=== PATIENT | male | born 1940 | race Caucasian/White ===

== ENCOUNTER 2018-02-09 14:00 | Inpatient (IN) | payer MEDICARE ==
[~2018-02-09] VITALS: Ht 184.2 cm; Wt 127.0 kg
[~2018-02-09 14:00] MED LIST: AMOX-291 PO; CLIN300C8 PO; DILT240C55 PO; HYDR-3237 PO; LEVO750T26 PO; LISI-167 PO; METO-95 PO; WARF5TAB PO
[2018-02-09] MEDS ORDERED: SODIUM CHLORIDE 0.9% 1,000 ML IV ONE (14:24)
[2018-02-09] MEDS ORDERED: MAGNESIUM SULFATE 1 GM, THIAMINE 100 MG, FOLIC ACID 1 MG, MVI ADULT 10 ML in SODIUM CHL... IV ONE (14:30)
[2018-02-09] MEDS ORDERED: SODIUM CHLORIDE FLUSH 10ML SYR IVF ONE (14:30)
[2018-02-09] MEDS ORDERED: LORazepam 2 MG/ML, 1ML IVPush PRN (14:30)
[2018-02-09] MEDS ORDERED: METOPROLOL 1 MG/ML, 5ML ONE ×2 (14:37→16:03)
[2018-02-09] MEDS ORDERED: LORazepam 2 MG/ML, 1ML ONE (14:37)
[2018-02-09] MEDS: METOPROLOL 1 MG/ML, 5ML IVPush PRN ×2 (14:43→16:06)
[2018-02-09 14:47] LABS: BASOPHILS # (AUTO) 0.03 x10^3/uL (0-0.1); BASOPHILS % (AUTO) 0 % (0-1); EOSINOPHILS # (AUTO) 0.08 x10^3/uL (0-0.4); EOSINOPHILS % (AUTO) 1 % (1-7); LYMPHOCYTES # (AUTO) 0.98 x10^3/uL (1-3.4); LYMPHOCYTES % (AUTO) 9 % (22-44); MD NO; MEAN CORPUSCULAR HEMOGLOBIN 33.3 pg (27.5-34.5); MEAN CORPUSCULAR HGB CONC 34.8 g/dL (33.2-36.2); MEAN CORPUSCULAR VOLUME 95.8 fL (81-97); MEAN PLATELET VOLUME 7.2 fL (7.4-10.4); MONOCYTES # (AUTO) 1.01 x10^3/uL (0.2-0.8); MONOCYTES % (AUTO) 9 % (2-9); NEUTROPHILS # (AUTO) 9.04 x10^3/uL (1.8-6.8); NEUTROPHILS % (AUTO) 81 % (42-75); PLATELET COUNT 256 x10^3/uL (130-400); RED BLOOD COUNT 4.62 x10^6/uL (4.38-5.82); RED CELL DISTRIBUTION WIDTH 14.9 % (9.4-14.8)
[2018-02-09 14:54] LABS: INTERNATIONAL NORMALIZED RATIO 1.03 (0.93-1.1); PROTHROMBIN TIME 10.7 Seconds (9.6-11.5)
[2018-02-09 14:59] LABS: ALBUMIN 3.6 g/dL (3.4-5.0); ANION GAP 12 mmol/L (5-15); CALCIUM 8.1 mg/dL (8.5-10.1); CHLORIDE 91 mmol/L (98-107)
[2018-02-09 15:06] LABS: ALANINE AMINOTRANSFERASE 38 U/L (12-78); ALKALINE PHOSPHATASE 76 U/L (45-117); BILIRUBIN,TOTAL 0.9 mg/dL (0.2-1.0); CREATININE 0.81 mg/dL (0.7-1.3); TOTAL PROTEIN 7.5 g/dL (6.4-8.2); TROPONIN I 0.028 ng/mL (0.000-0.045)
[2018-02-09] MEDS ORDERED: FUROSEMIDE 20 MG/2 ML IV ONE (16:00)
[2018-02-09] MEDS ORDERED: FUROSEMIDE 20 MG/2 ML ONE (16:03)
[2018-02-09] MEDS ORDERED: ONDANSETRON ODT 4 MG PO PRN (16:30)
[2018-02-09] MEDS ORDERED: LORazepam 1MG TABLET PO PRN ×3 (16:30)
[2018-02-09] MEDS ORDERED: LORazepam 2 MG/ML, 1ML IV PRN ×4 (16:30)
[2018-02-09] MEDS ORDERED: LORazepam 0.5MG TABLET PO PRN (16:30)
[2018-02-09 17:19] VITALS: BP 163/82
[2018-02-09] MEDS: CHLORDIAZEPOXIDE 10 MG CAPSULE PO SCH ×2 (18:22→20:51)
[2018-02-09] MEDS: THIAMINE 100 MG in SODIUM CHLORIDE 0.9% 50 ML IV SCH (18:23)
[2018-02-09] MEDS: ENOXAPARIN 40 MG/0.4 ML SQ SCH (18:23)
[2018-02-09] MEDS: DILTIAZEM 5 MG/ML, 5ML IVPush PRN (19:16)
[2018-02-09 20:45] VITALS: BP 181/143
[2018-02-09] MEDS: METOPROLOL SUCCINATE 100 MG TAB.ER.24H PO SCH (20:51)
[2018-02-09 21:38] LABS: TROPONIN I 0.028 ng/mL (0.000-0.045)
[2018-02-10 00:51] VITALS: BP 162/109
[2018-02-10] MEDS: DILTIAZEM 5 MG/ML, 5ML IVPush PRN (00:54)
[2018-02-10 03:02] LABS: BASOPHILS # (AUTO) 0.01 x10^3/uL (0-0.1); BASOPHILS % (AUTO) 0 % (0-1); EOSINOPHILS # (AUTO) 0.05 x10^3/uL (0-0.4); EOSINOPHILS % (AUTO) 0 % (1-7); LYMPHOCYTES # (AUTO) 0.96 x10^3/uL (1-3.4); LYMPHOCYTES % (AUTO) 8 % (22-44); MD NO; MEAN CORPUSCULAR HEMOGLOBIN 33.1 pg (27.5-34.5); MEAN CORPUSCULAR HGB CONC 34.3 g/dL (33.2-36.2); MEAN CORPUSCULAR VOLUME 96.5 fL (81-97); MEAN PLATELET VOLUME 6.9 fL (7.4-10.4); MONOCYTES % (AUTO) 10 % (2-9); NEUTROPHILS # (AUTO) 9.28 x10^3/uL (1.8-6.8); NEUTROPHILS % (AUTO) 81 % (42-75); PLATELET COUNT 211 x10^3/uL (130-400); RED BLOOD COUNT 4.33 x10^6/uL (4.38-5.82); RED CELL DISTRIBUTION WIDTH 14.9 % (9.4-14.8)
[2018-02-10 03:15] LABS: ALANINE AMINOTRANSFERASE 33 U/L (12-78); ALBUMIN 3.3 g/dL (3.4-5.0); ANION GAP 7 mmol/L (5-15); CALCIUM 7.9 mg/dL (8.5-10.1); CHLORIDE 93 mmol/L (98-107); CREATININE 0.92 mg/dL (0.7-1.3)
[2018-02-10 03:17] LABS: ALKALINE PHOSPHATASE 69 U/L (45-117); BILIRUBIN,TOTAL 1.4 mg/dL (0.2-1.0); TOTAL PROTEIN 6.7 g/dL (6.4-8.2); TROPONIN I 0.026 ng/mL (0.000-0.045)
[2018-02-10] MEDS: CHLORDIAZEPOXIDE 10 MG CAPSULE PO SCH ×4 (05:59→20:42)
[2018-02-10 07:17] VITALS: BP 148/99
[2018-02-10] MEDS: DILTIAZEM 60 MG TABLET PO SCH ×4 (07:39→20:43)
[2018-02-10] MEDS: FOLIC ACID 1 MG TABLET PO SCH (09:07)
[2018-02-10] MEDS: MULTIVITAMIN 1 TABLET PO SCH (09:07)
[2018-02-10] MEDS: FUROSEMIDE 20 MG/2 ML IV SCH (09:07)
[2018-02-10 12:53] VITALS: BP 156/95
[2018-02-10] MEDS: ENOXAPARIN 40 MG/0.4 ML SQ SCH (16:35)
[2018-02-10] MEDS: THIAMINE 100 MG in SODIUM CHLORIDE 0.9% 50 ML IV SCH (16:36)
[2018-02-10 20:14] VITALS: BP 144/86
[2018-02-10] MEDS: METOPROLOL SUCCINATE 100 MG TAB.ER.24H PO SCH (20:42)
[2018-02-11 01:25] VITALS: BP 104/67
[2018-02-11 05:47] LABS: BASOPHILS # (AUTO) 0.04 x10^3/uL (0-0.1); BASOPHILS % (AUTO) 1 % (0-1); EOSINOPHILS # (AUTO) 0.18 x10^3/uL (0-0.4); EOSINOPHILS % (AUTO) 2 % (1-7); LYMPHOCYTES # (AUTO) 1.04 x10^3/uL (1-3.4); LYMPHOCYTES % (AUTO) 13 % (22-44); MD NO; MEAN CORPUSCULAR HEMOGLOBIN 33.4 pg (27.5-34.5); MEAN CORPUSCULAR HGB CONC 34.4 g/dL (33.2-36.2); MEAN PLATELET VOLUME 7.4 fL (7.4-10.4); MONOCYTES # (AUTO) 0.98 x10^3/uL (0.2-0.8); MONOCYTES % (AUTO) 12 % (2-9); NEUTROPHILS # (AUTO) 6.06 x10^3/uL (1.8-6.8); NEUTROPHILS % (AUTO) 73 % (42-75); PLATELET COUNT 187 x10^3/uL (130-400); RED BLOOD COUNT 4.22 x10^6/uL (4.38-5.82); RED CELL DISTRIBUTION WIDTH 15.4 % (9.4-14.8)
[2018-02-11 05:59] LABS: ALBUMIN 3.1 g/dL (3.4-5.0); ANION GAP 7 mmol/L (5-15); CALCIUM 8.2 mg/dL (8.5-10.1); CHLORIDE 99 mmol/L (98-107)
[2018-02-11 06:02] LABS: ALANINE AMINOTRANSFERASE 33 U/L (12-78); ALKALINE PHOSPHATASE 69 U/L (45-117); BILIRUBIN,TOTAL 1.3 mg/dL (0.2-1.0); CREATININE 1.06 mg/dL (0.7-1.3); TOTAL PROTEIN 6.5 g/dL (6.4-8.2)
[2018-02-11 06:29] VITALS: BP 145/84
[2018-02-11] MEDS: DILTIAZEM 60 MG TABLET PO SCH (06:30)
[2018-02-11 06:40] VITALS: BP 131/81
[2018-02-11] MEDS: FUROSEMIDE 20 MG/2 ML IV SCH (09:23)
[2018-02-11] MEDS: MULTIVITAMIN 1 TABLET PO SCH (09:23)
[2018-02-11] MEDS: DILTIAZEM 240 MG CAP.ER.24H PO SCH (09:24)
[2018-02-11] MEDS: FOLIC ACID 1 MG TABLET PO SCH (09:24)
[2018-02-11 14:05] VITALS: BP 115/75
[2018-02-11] MEDS: ENOXAPARIN 40 MG/0.4 ML SQ SCH (16:53)
[2018-02-11 20:45] VITALS: BP 128/80
[2018-02-11] MEDS: METOPROLOL SUCCINATE 100 MG TAB.ER.24H PO SCH (20:47)
[2018-02-12 01:21] VITALS: BP 106/73
[2018-02-12 04:59] LABS: ANION GAP 7 mmol/L (5-15); CALCIUM 8.6 mg/dL (8.5-10.1); CHLORIDE 101 mmol/L (98-107)
[2018-02-12 05:00] LABS: CREATININE 0.95 mg/dL (0.7-1.3)
[2018-02-12 08:00] VITALS: BP 140/81
[2018-02-12 08:11] VITALS: BP 146/88
[2018-02-12] MEDS: DILTIAZEM 240 MG CAP.ER.24H PO SCH (08:12)
[2018-02-12] MEDS: FOLIC ACID 1 MG TABLET PO SCH (08:13)
[2018-02-12] MEDS: MULTIVITAMIN 1 TABLET PO SCH (08:13)
[2018-02-12] MEDS: FUROSEMIDE 20 MG/2 ML IV SCH (08:14)
[2018-02-12] MEDS ORDERED: THIAMINE 100MG TABLET PO SCH (09:00)
[2018-02-12] MEDS ORDERED: MULT1TAB60 PO (10:43)
[2018-02-12] MEDS ORDERED: FURO20TA3 PO (10:43)
[2018-02-12] MEDS ORDERED: THIA100T6 PO (10:43)
[2018-02-12] MEDS ORDERED: DILT240C55 PO (10:43)
[2018-02-12] MEDS ORDERED: FOLI-17 PO (10:43)
[2018-02-12] MEDS ORDERED: METO-95 PO (10:46)
== END 2018-02-12 14:00 | disposition home or self-care (01) | DRG 896 ==
LOC: ED 15:13 → EDIP 15:33 → 5SO 16:21
PROVIDERS: ADMIT Hospitalist; ATTEND Hospitalist
DX: F10.239 Alcohol dependence with withdrawal, unspecified (principal); I50.31 Acute diastolic (congestive) heart failure; E87.2 Acidosis; I48.2 Chronic atrial fibrillation; D68.59 Other primary thrombophilia; E87.1 Hypo-osmolality and hyponatremia; D72.829 Elevated white blood cell count, unspecified; H40.9 Unspecified glaucoma; F41.9 Anxiety disorder, unspecified; I11.0 Hypertensive heart disease with heart failure; Z85.46 Personal history of malignant neoplasm of prostate; Z80.3 Family history of malignant neoplasm of breast; Z79.899 Other long term (current) drug therapy; Z87.891 Personal history of nicotine dependence
CPT/HCPCS: 36415; 71045; 80048; 80053; 80307; 83735; 83880; 84443; 84484; 85025; 85610; 93005; 93306; 96361; 96365; 96375; 96376; J1650; J3411; J3475; J1940; J2060; J7030

== ENCOUNTER 2019-05-02 14:13 | Inpatient (IN) | payer MEDICARE ==
[~2019-05-02] VITALS: Ht 182.9 cm; Wt 116.4 kg
[~2019-05-02 14:13] MED LIST changes: +AMIO200T42 PO; +APIX5TAB PO; +ASPI81TA45 PO; +ATOR-2 PO; +ATOR20TA37 PO; +FOLI-17 PO; +FURO20TA3 PO; +LATA2.5D3 HOMEOPHTH; +LISI5TAB7 PO; +METO50TA82 PO; +MULT1TAB60 PO; +THIA100T67 PO; +TICA90TA PO
--- NOTE | 2019-05-02 14:20 | NUR ---
PT ARRIVED AMBULATORY TO ROOM 14. PT C/O FATIGUE SINCE THURSDAY. DRANK SOME CAFFEINE YESTERDAY AND FELT OVERLY WIRED. SO THEN PT HAS BEEN DRINKING ALCOHOL TRYING TO GET THE WIRED/SPACED FEELING TO SUBSIDE. PT HAS HX AFIB AND ETOH WITHDRAWL. VSS, AAO X 4, DRESSED IN GOWN AND PLACED ON MONITOR. PT RESTING COMFORTABLY WITH SIDERAILS X [address], FALL PRECAUTIONS IN PLACE.
[2019-05-02] MEDS ORDERED: METO200T47 PO (14:32)
[2019-05-02] MEDS ORDERED: LORazepam 2 MG/ML, 1ML IVPush PRN (15:00)
[2019-05-02] MEDS ORDERED: THIAMINE 100 MG in SODIUM CHLORIDE 0.9% 50 ML IVPB ONE (15:00)
[2019-05-02] MEDS ORDERED: SODIUM CHLORIDE FLUSH 10ML SYR IVF ONE (15:00)
[2019-05-02] MEDS ORDERED: SODIUM CHLORIDE 0.9% 1,000ML IVBOLUS ONE (15:00)
[2019-05-02 15:07] LABS: BASOPHILS # (AUTO) 0.01 x10^3/uL (0-0.1); BASOPHILS % (AUTO) 0 % (0-1); EOSINOPHILS # (AUTO) 0.18 x10^3/uL (0-0.4); EOSINOPHILS % (AUTO) 2 % (1-7); LYMPHOCYTES # (AUTO) 0.85 x10^3/uL (1-3.4); LYMPHOCYTES % (AUTO) 8 % (22-44); MD NO; MEAN CORPUSCULAR HEMOGLOBIN 34.5 pg (27.5-34.5); MEAN CORPUSCULAR HGB CONC 32.9 g/dL (33.2-36.2); MEAN CORPUSCULAR VOLUME 104.6 fL (81-97); MEAN PLATELET VOLUME 6.7 fL (7.4-10.4); MONOCYTES # (AUTO) 1.09 x10^3/uL (0.2-0.8); MONOCYTES % (AUTO) 11 % (2-9); NEUTROPHILS # (AUTO) 8.19 x10^3/uL (1.8-6.8); NEUTROPHILS % (AUTO) 79 % (42-75); PLATELET COUNT 214 x10^3/uL (130-400); RED BLOOD COUNT 4.26 x10^6/uL (4.38-5.82)
[2019-05-02 15:16] LABS: INTERNATIONAL NORMALIZED RATIO 1.06 (0.93-1.1); PROTHROMBIN TIME 11.1 Seconds (9.6-11.5)
[2019-05-02 15:19] LABS: ALANINE AMINOTRANSFERASE 38 U/L (12-78); ALBUMIN 3.8 g/dL (3.4-5.0); ANION GAP 8 mmol/L (5-15); CALCIUM 8.7 mg/dL (8.5-10.1); CHLORIDE 102 mmol/L (98-107); CREATININE 1.02 mg/dL (0.7-1.3)
[2019-05-02 15:29] LABS: ALKALINE PHOSPHATASE 79 U/L (45-117); BILIRUBIN,TOTAL 0.8 mg/dL (0.2-1.0); FREE T4 (FREE THYROXINE) 0.99 ng/dL (0.76-1.46); TOTAL PROTEIN 7.3 g/dL (6.4-8.2)
--- NOTE | 2019-05-02 15:57 | NUR ---
PT RESTING COMFORTABLY ON GURNEY, VSS, PT AAO X 4, FALL PRECAUTIONS IN PLACE.
[2019-05-02] MEDS ORDERED: LORazepam 2 MG/ML, 1ML IV PRN ×2 (16:30)
[2019-05-02] MEDS ORDERED: ACETAMINOPHEN 325 MG TABLET PO PRN (16:30)
[2019-05-02] MEDS ORDERED: LORazepam 1MG TABLET PO PRN (16:30)
[2019-05-02] MEDS ORDERED: LORazepam 0.5MG TABLET PO PRN (16:30)
[2019-05-02] MEDS ORDERED: ONDANSETRON 2MG/ML, 2ML IVPush PRN (16:30)
[2019-05-02] MEDS ORDERED: ONDANSETRON ODT 4 MG PO PRN (16:30)
[2019-05-02] MEDS ORDERED: THIAMINE 100MG TABLET PO ONE (16:30)
--- NOTE | 2019-05-02 16:39 | NUR ---
HOSPITALIST AT BEDSIDE EXAMINING PT AND DISCUSSING POC WITH PT
--- NOTE | 2019-05-02 16:50 | NUR ---
PT STATES HE CAN FEEL THE AFIB/CHANGE IN HR AND FEELING MILDLY ANXIOUS. CIWA SCORE 3 AND NOT MEDICATED AT THIS TIME
[2019-05-02] MEDS ORDERED: HEPARIN 5,000 UNITS/ML, 1ML SQ SCH (17:00)
[2019-05-02 17:01] LABS: TROPONIN I 0.033 ng/mL (0.000-0.045)
--- NOTE | 2019-05-02 17:12 | NUR ---
transfer to floor, report called.
[2019-05-02] MEDS: SODIUM CHLORIDE 0.9% 1,000 ML IV SCH (18:11)
[2019-05-02 18:16] VITALS: BP 153/99
[2019-05-02 18:39] VITALS: BP 151/90
[2019-05-02] MEDS ORDERED: MELA1TAB PO (20:39)
[2019-05-02] MEDS ORDERED: METOPROLOL TARTRATE 50 MG TABLET PO ONE (21:00)
[2019-05-02] MEDS ORDERED: LATANOPROST OPHTH 0.005%, 2.5ML HOMEOPHTH SCH (21:00)
[2019-05-02 21:18] VITALS: BP 171/99
[2019-05-02] MEDS: MELATONIN 5 MG TABLET PO PRN (21:25)
[2019-05-02] MEDS: AMIODARONE 200 MG TABLET PO SCH (21:25)
[2019-05-02] MEDS: LATANOPROST OPHTH 0.005%, 2.5ML OP SCH (21:26)
[2019-05-02 22:58] LABS: TROPONIN I 0.043 ng/mL (0.000-0.045)
[2019-05-03] VITALS (7 sets, daily range): BP systolic 122–187; BP diastolic 72–135
[2019-05-03] MEDS: LORazepam 1MG TABLET PO PRN ×2 (00:50→05:20)
[2019-05-03] MEDS: AMIODARONE 200 MG TABLET PO SCH ×2 (07:04→21:01)
[2019-05-03] MEDS: ISOSORBIDE DINITRATE 10 MG TABLET PO SCH ×3 (08:42→21:04)
[2019-05-03] MEDS: SODIUM CHLORIDE 0.9% 1,000 ML IV SCH (08:44)
[2019-05-03] MEDS ORDERED: METOPROLOL SUCCINATE 100 MG TAB.ER.24H PO SCH ×2 (09:00)
[2019-05-03 09:53] LABS: BASOPHILS # (AUTO) 0.05 x10^3/uL (0-0.1); BASOPHILS % (AUTO) 0 % (0-1); EOSINOPHILS # (AUTO) 0.05 x10^3/uL (0-0.4); EOSINOPHILS % (AUTO) 0 % (1-7); LYMPHOCYTES # (AUTO) 0.42 x10^3/uL (1-3.4); LYMPHOCYTES % (AUTO) 3 % (22-44); MD NO; MEAN CORPUSCULAR HEMOGLOBIN 35.1 pg (27.5-34.5); MEAN CORPUSCULAR HGB CONC 33.8 g/dL (33.2-36.2); MEAN CORPUSCULAR VOLUME 103.7 fL (81-97); MEAN PLATELET VOLUME 6.6 fL (7.4-10.4); MONOCYTES # (AUTO) 1.02 x10^3/uL (0.2-0.8); MONOCYTES % (AUTO) 8 % (2-9); NEUTROPHILS # (AUTO) 11.11 x10^3/uL (1.8-6.8); NEUTROPHILS % (AUTO) 88 % (42-75); PLATELET COUNT 232 x10^3/uL (130-400); RED BLOOD COUNT 4.15 x10^6/uL (4.38-5.82); RED CELL DISTRIBUTION WIDTH 15.5 % (9.4-14.8)
[2019-05-03] MEDS: LORazepam 2 MG/ML, 1ML IV PRN (12:38)
[2019-05-03] MEDS: MELATONIN 5 MG TABLET PO PRN (21:03)
[2019-05-04] MEDS: SODIUM CHLORIDE 0.9% 1,000 ML IV SCH ×2 (01:04→16:26)
[2019-05-04] MEDS: LORazepam 2 MG/ML, 1ML IV PRN ×2 (01:12→22:48)
[2019-05-04 03:30] VITALS: BP 150/84
[2019-05-04 05:02] LABS: BASOPHILS # (AUTO) 0.02 x10^3/uL (0-0.1); BASOPHILS % (AUTO) 0 % (0-1); EOSINOPHILS # (AUTO) 0.28 x10^3/uL (0-0.4); EOSINOPHILS % (AUTO) 3 % (1-7); LYMPHOCYTES # (AUTO) 1.07 x10^3/uL (1-3.4); LYMPHOCYTES % (AUTO) 11 % (22-44); MD NO; MEAN CORPUSCULAR HEMOGLOBIN 35.6 pg (27.5-34.5); MEAN CORPUSCULAR HGB CONC 33.4 g/dL (33.2-36.2); MEAN CORPUSCULAR VOLUME 106.4 fL (81-97); MEAN PLATELET VOLUME 6.6 fL (7.4-10.4); MONOCYTES # (AUTO) 1.01 x10^3/uL (0.2-0.8); MONOCYTES % (AUTO) 11 % (2-9); NEUTROPHILS % (AUTO) 75 % (42-75); PLATELET COUNT 194 x10^3/uL (130-400); RED BLOOD COUNT 3.74 x10^6/uL (4.38-5.82); RED CELL DISTRIBUTION WIDTH 15.6 % (9.4-14.8)
[2019-05-04] MEDS: METOPROLOL SUCCINATE 100 MG TAB.ER.24H PO SCH ×2 (05:07→19:46)
[2019-05-04 05:17] LABS: ANION GAP 4 mmol/L (5-15); CALCIUM 8.2 mg/dL (8.5-10.1); CHLORIDE 105 mmol/L (98-107); CREATININE 0.99 mg/dL (0.7-1.3)
[2019-05-04 07:18] VITALS: BP 135/75
[2019-05-04] MEDS: AMIODARONE 200 MG TABLET PO SCH ×2 (07:37→20:58)
[2019-05-04] MEDS: ISOSORBIDE DINITRATE 10 MG TABLET PO SCH ×3 (07:38→20:59)
[2019-05-04 14:10] VITALS: BP 117/70
[2019-05-04 16:27] VITALS: BP 129/88
[2019-05-04 20:14] VITALS: BP 133/84
[2019-05-04] MEDS: LATANOPROST OPHTH 0.005%, 2.5ML OP SCH (20:57)
[2019-05-05 01:00] VITALS: BP 146/82
[2019-05-05] MEDS: LORazepam 2 MG/ML, 1ML IV PRN ×2 (02:52→03:17)
[2019-05-05] MEDS: METOPROLOL SUCCINATE 100 MG TAB.ER.24H PO SCH (05:06)
[2019-05-05 07:30] VITALS: BP 165/90
[2019-05-05] MEDS ORDERED: ISOS10TA2 PO (08:13)
[2019-05-05] MEDS ORDERED: HYDR-3341 PO (08:13)
[2019-05-05] MEDS ORDERED: ATOR40TA78 PO (08:26)
[2019-05-05] MEDS: ISOSORBIDE DINITRATE 10 MG TABLET PO SCH (08:56)
[2019-05-05] MEDS: AMIODARONE 200 MG TABLET PO SCH (08:57)
[2019-05-05 13:30] VITALS: BP 140/72
== END 2019-05-05 13:40 | disposition home or self-care (01) | DRG 309 ==
LOC: ED 16:27 → EDIP 16:28 → ED 16:40 → 5SO 17:39
PROVIDERS: ADMIT Internal Medicine; ATTEND Internal Medicine
DX: I48.0 Paroxysmal atrial fibrillation (principal); F10.239 Alcohol dependence with withdrawal, unspecified; E87.1 Hypo-osmolality and hyponatremia; D72.829 Elevated white blood cell count, unspecified; E66.9 Obesity, unspecified; Z68.34 Body mass index [BMI] 34.0-34.9, adult; E78.5 Hyperlipidemia, unspecified; F10.229 Alcohol dependence with intoxication, unspecified; Y90.9 Presence of alcohol in blood, level not specified; F41.1 Generalized anxiety disorder; G47.00 Insomnia, unspecified; H40.9 Unspecified glaucoma; I11.0 Hypertensive heart disease with heart failure; I25.10 Atherosclerotic heart disease of native coronary artery without angina pectoris; I25.2 Old myocardial infarction; I50.9 Heart failure, unspecified; Z80.3 Family history of malignant neoplasm of breast; Z85.46 Personal history of malignant neoplasm of prostate; Z95.5 Presence of coronary angioplasty implant and graft; Z79.82 Long term (current) use of aspirin; Z79.899 Other long term (current) drug therapy
CPT/HCPCS: 36415; 71045; 80048; 80053; 84439; 84443; 84484; 85025; 85610; 85730; 93005; 99285; G0378; J3411; J2060; J7030

== ENCOUNTER 2019-12-09 12:42 | Emergency (ER) | payer MEDICARE ==
[~2019-12-09] VITALS: Ht 182.9 cm; Wt 98.8 kg
[~2019-12-09 12:42] MED LIST changes: +ATOR40TA78 PO; +GABA300C10 PO; +HYDR-3341 PO; +ISOS10TA2 PO; +MELA1TAB PO; +METO200T47 PO
[2019-12-09] MEDS ORDERED: CYCLOBENZAPRINE 10 MG TABLET PO ONE (13:00)
[2019-12-09] MEDS ORDERED: CYCLOBENZAPRINE 10 MG TABLET ONE (13:14)
[2019-12-09] MEDS ORDERED: PLEASE ENTER HEIGHT AND WEIGHT MC SCH (13:30)
[2019-12-09] MEDS ORDERED: KETOROLAC 30 MG/1 ML IM ONE (14:00)
[2019-12-09 14:02] LABS: BASOPHILS # (AUTO) 0.04 x10^3/uL (0-0.1); BASOPHILS % (AUTO) 1 % (0-1); EOSINOPHILS % (AUTO) 2 % (1-7); LYMPHOCYTES # (AUTO) 0.74 x10^3/uL (1-3.4); LYMPHOCYTES % (AUTO) 11 % (22-44); MD NO; MEAN CORPUSCULAR HEMOGLOBIN 34.7 pg (27.5-34.5); MEAN CORPUSCULAR HGB CONC 33.1 g/dL (33.2-36.2); MEAN CORPUSCULAR VOLUME 104.8 fL (81-97); MEAN PLATELET VOLUME 7.1 fL (7.4-10.4); MONOCYTES # (AUTO) 0.52 x10^3/uL (0.2-0.8); MONOCYTES % (AUTO) 8 % (2-9); NEUTROPHILS # (AUTO) 5.34 x10^3/uL (1.8-6.8); NEUTROPHILS % (AUTO) 79 % (42-75); PLATELET COUNT 208 x10^3/uL (130-400); RED BLOOD COUNT 4.01 x10^6/uL (4.38-5.82); RED CELL DISTRIBUTION WIDTH 16.1 % (9.4-14.8)
[2019-12-09 14:05] VITALS: BP 128/61
--- NOTE | 2019-12-09 14:07 | NUR ---
PT RESTING IN HOSPITAL BED. REPORTING SOME PAIN. NOTIFIED. SEE MAR FOR INTERVENTIONS.
[2019-12-09 14:09] LABS: ALBUMIN 3.5 g/dL (3.4-5.0); ANION GAP 8 mmol/L (5-15); CALCIUM 8.7 mg/dL (8.5-10.1); CHLORIDE 112 mmol/L (98-107); CREATININE 0.98 mg/dL (0.7-1.3)
[2019-12-09] MEDS ORDERED: KETOROLAC 30 MG/1 ML ONE (14:12)
== END 2019-12-09 15:28 | disposition home or self-care (01) ==
LOC: ED 15:15
DX: M47.814 Spondylosis without myelopathy or radiculopathy, thoracic region (principal); G89.29 Other chronic pain; I11.0 Hypertensive heart disease with heart failure; I50.9 Heart failure, unspecified; I48.91 Unspecified atrial fibrillation
CPT/HCPCS: 36415; 72072; 80048; 82040; 85025; 96372; 99284; J1885

== ENCOUNTER 2021-06-28 20:29 | Emergency (ER) | payer MEDICARE ==
[~2021-06-28] VITALS: Ht 184.2 cm; Wt 106.8 kg
[~2021-06-28 20:29] MED LIST changes: -CLIN300C8 PO; +CLIN300C9 PO; +DIGO125T85 PO; -FOLI-17 PO; +FOLI1TAB32 PO; -LATA2.5D3 HOMEOPHTH; +LATA2.5D4 HOMEOPHTH; +LATA2.5D4 LEFTEYE; +LIDO700A20 TD; +METO-99 PO; +MULT-449 PO; -MULT1TAB60 PO; -WARF5TAB PO; +WARF5TAB2 PO
[2021-06-28] MEDS ORDERED: METOPROLOL 1 MG/ML, 5ML IVPush ONE (21:00)
[2021-06-28] MEDS ORDERED: METOPROLOL TARTRATE 25 MG TAB PO ONE (21:00)
[2021-06-28] MEDS ORDERED: METOPROLOL 1 MG/ML, 5ML ONE (21:11)
[2021-06-28] MEDS ORDERED: METOPROLOL TARTRATE 25 MG TAB ONE (21:11)
[2021-06-28 21:48] LABS: BASOPHILS % (AUTO) 2 % (0-1); EOSINOPHILS % (AUTO) 2 % (1-7); LYMPHOCYTES % (AUTO) 15 % (22-44); MEAN CORPUSCULAR HEMOGLOBIN 35.8 pg (27.5-34.5); MEAN CORPUSCULAR HGB CONC 34.9 g/dL (33.2-36.2); MONOCYTES % (AUTO) 10 % (2-9); NEUTROPHILS % (AUTO) 72 % (42-75); PLATELET COUNT 225 x10^3/uL (130-400); RED BLOOD COUNT 3.51 x10^6/uL (4.38-5.82); RED CELL DISTRIBUTION WIDTH 15.9 % (9.4-14.8)
[2021-06-28] MEDS ORDERED: KETOROLAC 30 MG/1 ML ONE (21:50)
[2021-06-28 21:59] LABS: ALANINE AMINOTRANSFERASE 24 U/L (12-78); ANION GAP 11 mmol/L (5-15); CALCIUM 8.7 mg/dL (8.5-10.1); CHLORIDE 96 mmol/L (98-107); CREATININE 0.68 mg/dL (0.7-1.3)
[2021-06-28] MEDS ORDERED: KETOROLAC 30 MG/1 ML IVPush ONE (22:00)
[2021-06-28 22:03] LABS: ALKALINE PHOSPHATASE 116 U/L (45-117); BILIRUBIN,TOTAL 0.6 mg/dL (0.2-1.0); TOTAL PROTEIN 6.8 g/dL (6.4-8.2); TROPONIN I < 0.015 ng/mL (0.000-0.045)
[2021-06-28] MEDS ORDERED: LIDODERM 5% PATCH TD ONE ×2 (22:53→23:00)
[2021-06-28 23:12] VITALS: BP 110/74
--- NOTE | 2021-06-28 23:13 | NUR ---
pt medicated per emar. provided with walker, pt ambulating steady with it to restroom. pt uses walker at baseline
== END 2021-06-28 23:55 | disposition home or self-care (01) ==
LOC: ED 23:45
DX: S39.012A Strain of muscle, fascia and tendon of lower back, initial encounter (principal); I48.91 Unspecified atrial fibrillation; F10.129 Alcohol abuse with intoxication, unspecified; R00.0 Tachycardia, unspecified; R07.9 Chest pain, unspecified; I50.9 Heart failure, unspecified; Z90.89 Acquired absence of other organs; Z87.891 Personal history of nicotine dependence; Z98.61 Coronary angioplasty status; Y90.0 Blood alcohol level of less than 20 mg/100 ml; X58.XXXA Exposure to other specified factors, initial encounter; Y93.89 Activity, other specified; Y92.89 Other specified places as the place of occurrence of the external cause; Y99.8 Other external cause status
CPT/HCPCS: 36415; 71045; 80053; 80320; 84484; 85025; 93005; 96374; 96375; 99285; J1885; G0480

== ENCOUNTER 2021-06-29 01:52 | Emergency (ER) | payer MEDICARE ==
[~2021-06-29] VITALS: Ht 185.4 cm; Wt 111.8 kg
[2021-06-29] MEDS ORDERED: METOPROLOL TARTRATE 50 MG TAB PO ONE (05:30)
[2021-06-29] MEDS ORDERED: LORazepam 1MG TABLET PO ONE (05:30)
[2021-06-29] MEDS ORDERED: LORazepam 1MG TABLET ONE (05:33)
[2021-06-29] MEDS ORDERED: METOPROLOL TARTRATE 50 MG TAB ONE (05:33)
[2021-06-29 05:54] VITALS: BP 166/84
== END 2021-06-29 06:31 | disposition home or self-care (01) ==
LOC: ED 05:20
DX: I48.20 Chronic atrial fibrillation, unspecified (principal); F10.229 Alcohol dependence with intoxication, unspecified; Y90.0 Blood alcohol level of less than 20 mg/100 ml; I50.9 Heart failure, unspecified; I21.4 Non-ST elevation (NSTEMI) myocardial infarction
CPT/HCPCS: 93005; 99283